=== PATIENT | female | born 1945 | race Caucasian/White ===

== ENCOUNTER → 2016-12-22 | Outpatient (CLI) | payer OTHER ==
[~2016-12-22] MED LIST: ASPIRIN EC325 MG PO; ATORVASTATIN CA20 MG PO; Advil,Nuprin,Motrin PO; Aspirin Chewable PO; CALTRATE 6001 TABLE2 PO; CELEBREX200 MG PO; COUMADIN,JANTOVE4 MG PO; DAILY MULTIPLE1 EACH PO; Feosol PO; HYDROCODON-ACE1 EAC7 PO; HYDRODIURIL,O12.5 M2 PO; IRON325 M1 PO; LISINOPRIL20 MG PO; LO-DOSE ASPIRIN81 M1 PO; METOPROLOL TAR100 MG PO; Percocet 5/325,Endoc PO; SENOKOT S,PE1 TABLET PO; SIMVASTATIN; THERAGRAN1 TABLET PO; TOPROL XL100 MG PO; TOPROL XL200 MG PO; TRAMADOL HCL50 MG PO; VITAMIN D-32000 UNI1 PO; Vicodin,Lortab 5/500 PO; Vitamin D PO; WARFARIN SODIUM5 MG PO; ZOCOR80 MG PO; Zestril,Prinivil PO; celeBREX PO
== END | disposition home or self-care (01) ==
DX: M16.12 Unilateral primary osteoarthritis, left hip (principal)
CPT/HCPCS: 97110 GP; 97150 GO; 97161 GP; 97165 GO; G8978 GP; G8979 GP; G8980 GP; G8987 GO; G8988 GO; G8989 GO

== ENCOUNTER 2017-02-02 08:55 | Inpatient (IN) | payer OTHER ==
[~2017-02-02] VITALS: Ht 165.1 cm; Wt 81.0 kg
[~2017-02-02 08:55] MED LIST changes: +IRON325 MG PO; +VITAMIN D-32000 UNI2 PO
[2017-02-02 09:19] VITALS: BP 214/95
[2017-02-02 14:37] LABS: MCH 30.5 PG (29.0-34.0); MCV 92.5 FL (83-99); PLATELET COUNT 176 K/uL (156-360); RBC DIS.WIDTH-CV 12.1 % (11.8-14.6); RBC DIS.WIDTH-SD 41.6 % (39-53)
[2017-02-02 17:21] VITALS: BP 190/79
[2017-02-02 20:24] VITALS: BP 145/64
[2017-02-03 00:13] VITALS: BP 175/74
[2017-02-03 04:24] VITALS: BP 142/65
[2017-02-03 05:50] LABS: ANION GAP 8 MEQ/L (2-14); CHLORIDE 102 MEQ/L (99-109); GFR ESTIMATE (CALCULATED) > 59 mL/min/; GLUCOSE 124 mg/dL (70-99); POTASSIUM 3.8 MEQ/L (3.7-5.4); SAMPLE HEMOLYSIS CHECK 0; SAMPLE ICTERIC CHECK 0; SAMPLE LIPEMIA CHECK 0; SODIUM 137 MEQ/L (136-147); UREA NITROGEN (BUN) 14 mg/dL (9-23)
[2017-02-03 08:00] VITALS: BP 142/65
[2017-02-03 12:14] VITALS: BP 129/60
[2017-02-03 13:15] LABS: MCV 93.6 FL (83-99)
[2017-02-03 16:01] VITALS: BP 142/68
[2017-02-03 19:40] VITALS: BP 151/67
[2017-02-04 00:10] VITALS: BP 133/62
[2017-02-04 04:25] VITALS: BP 138/63
[2017-02-04 08:06] VITALS: BP 145/66
[2017-02-04] MEDS ORDERED: DOCUSATE SODIU100 MG PO (08:47)
[2017-02-04] MEDS ORDERED: LOVENOX40 MG/0.4 SC (08:47)
[2017-02-04] MEDS ORDERED: CELECOXIB200 MG PO (08:48)
[2017-02-04] MEDS ORDERED: HYDROCODON-ACE1 EAC7 PO (08:48)
[2017-02-04 11:39] VITALS: BP 131/58
[2017-02-04 13:38] VITALS: BP 120/58
== END 2017-02-04 14:16 | disposition home health service (06) | DRG 469 ==
LOC: 2SOUTH 08:55 → 3WEST 16:42
PROVIDERS: Orthopaedic Surgery
PROC: 0SRB02A Replacement of Left Hip Joint with Metal on Polyethylene Synthetic Substitute, Uncemented, Open Approach (ICD-10-PCS; principal; 2017-02-02)
DX: M16.12 Unilateral primary osteoarthritis, left hip (principal); M31.1 Thrombotic microangiopathy; E55.9 Vitamin D deficiency, unspecified; I10 Essential (primary) hypertension; E78.2 Mixed hyperlipidemia; Z96.651 Presence of right artificial knee joint; Z96.641 Presence of right artificial hip joint
CPT/HCPCS: 73501; 80048; 85014; 85018; 85027; 97530 GP; J0131; J0690; J1170; J1650; J2250; J2405; J7050